=== PATIENT | female | born 1950 | race Caucasian/White ===

== ENCOUNTER 2018-02-09 12:58 | Emergency (ER) | payer MEDICARE ==
[~2018-02-09] VITALS: Ht 165.1 cm; Wt 89.0 kg
[~2018-02-09 12:58] MED LIST: ASPI-611 PO; DILT180C53 PO; LOSA25TA96 PO; OMEP20TA5 PO
[2018-02-09] MEDS ORDERED: ketorolac trometh. 30mg/ml inj. IM ONE (15:20)
[2018-02-09 15:46] VITALS: BP 130/65
== END 2018-02-09 15:44 | disposition home or self-care (01) ==
LOC: ER 12:59
DX: M79.605 Pain in left leg (principal); I48.91 Unspecified atrial fibrillation; I50.9 Heart failure, unspecified; I11.0 Hypertensive heart disease with heart failure; K21.9 Gastro-esophageal reflux disease without esophagitis; E11.9 Type 2 diabetes mellitus without complications; Z98.84 Bariatric surgery status; Z79.82 Long term (current) use of aspirin; Z79.899 Other long term (current) drug therapy
CPT/HCPCS: 93971; 96372; 99284; J1885

== ENCOUNTER 2018-12-30 08:37 | Emergency (ER) | payer MEDICARE ==
[~2018-12-30] VITALS: Ht 167.6 cm; Wt 93.2 kg
--- NOTE | 2018-12-30 09:06 | NUR ---
Patient ambulated to room from lobby with steady gait. Patient denies any CP, SOB, N/V or any other pain at this time. Patient reports only numbness to left arm since this AM. Patient denies any recent neck, back or arm injury. Patient reports surg. to neck 07/25. Patient don gown and given warm blanket. Lab michael blood at bedside.
[2018-12-30 09:52] VITALS: BP 105/58
== END 2018-12-30 09:53 | disposition home or self-care (01) ==
LOC: ER 08:37
DX: R20.0 Anesthesia of skin (principal); I11.0 Hypertensive heart disease with heart failure; I50.9 Heart failure, unspecified; I48.91 Unspecified atrial fibrillation; E11.9 Type 2 diabetes mellitus without complications; Z98.890 Other specified postprocedural states; Z88.8 Allergy status to other drugs, medicaments and biological substances; Z79.82 Long term (current) use of aspirin; Z79.899 Other long term (current) drug therapy
CPT/HCPCS: 71045; 93005; 99283

== ENCOUNTER 2019-01-22 14:58 | Outpatient (CLI) | payer MEDICARE ==
[2019-01-22 16:05] LABS: TOTAL HEMOGLOBIN 13.5 G/dl (12.0-16.0)
== END 2019-01-22 23:59 | disposition home or self-care (01) ==
LOC: RT 14:58
PROVIDERS: ATTEND Internal Medicine Cardiovascular Disease
DX: I11.0 Hypertensive heart disease with heart failure (principal); I50.9 Heart failure, unspecified; E11.9 Type 2 diabetes mellitus without complications; F17.210 Nicotine dependence, cigarettes, uncomplicated; Z79.899 Other long term (current) drug therapy; Z79.82 Long term (current) use of aspirin; R06.09 Other forms of dyspnea
CPT/HCPCS: 85018; 94010; 94727; 94729

== ENCOUNTER 2019-06-14 12:04 | Emergency (ER) | payer MEDICARE ==
[~2019-06-14] VITALS: Ht 167.6 cm; Wt 94.0 kg
[2019-06-14] MEDS ORDERED: ondansetron 4mg rapidly disintigrating tab PO ONE (12:25)
[2019-06-14] MEDS ORDERED: morphine 4 MG/ML inj SYRINge IM ONE (12:25)
[2019-06-14] MEDS ORDERED: morphine 10mg/ml inj. IM ONE (12:30)
[2019-06-14 14:14] VITALS: BP 116/68
== END 2019-06-14 14:19 | disposition home or self-care (01) ==
LOC: ER 12:04
DX: S30.0XXA Contusion of lower back and pelvis, initial encounter (principal); M79.7 Fibromyalgia; I48.91 Unspecified atrial fibrillation; I11.0 Hypertensive heart disease with heart failure; I50.9 Heart failure, unspecified; E11.9 Type 2 diabetes mellitus without complications; Z98.890 Other specified postprocedural states; Z98.84 Bariatric surgery status; Z79.82 Long term (current) use of aspirin; Z79.899 Other long term (current) drug therapy; Z88.8 Allergy status to other drugs, medicaments and biological substances; W01.198A Fall on same level from slipping, tripping and stumbling with subsequent striking against other object, initial encounter; Y93.89 Activity, other specified; Y92.89 Other specified places as the place of occurrence of the external cause; Y99.9 Unspecified external cause status
CPT/HCPCS: 72128; 72131; 96372; 99284; J2270

== ENCOUNTER → 2020-02-20 | Outpatient (CLI) | payer MEDICARE, MEDICAID ==
[2020-02-20 10:31] LABS: TOTAL HEMOGLOBIN 14.9 G/dl (12.0-16.0)
== END | disposition home or self-care (01) ==
LOC: RT 10:09
PROVIDERS: ATTEND Internal Medicine Cardiovascular Disease
DX: R06.02 Shortness of breath (principal); Z79.899 Other long term (current) drug therapy
CPT/HCPCS: 85018; 94010; 94727; 94729

== ENCOUNTER 2020-07-06 14:37 | Emergency (ER) | payer MEDICARE, MEDICAID ==
[~2020-07-06] VITALS: Ht 167.6 cm; Wt 98.6 kg
[2020-07-06] MEDS ORDERED: HYDROcodone/acetaminophen 5mg/325mg tablet PO ONE (15:00)
--- NOTE | 2020-07-06 15:10 | NUR ---
Patient in CT
--- NOTE | 2020-07-06 15:25 | NUR ---
Patient in X-Ray
[2020-07-06 15:49] LABS: BASOPHILS % (AUTO) 0.6 % (0-1); EOSINOPHILS # (AUTO) 0.1 X10'3 (0-0.9); EOSINOPHILS % (AUTO) 1.4 % (0-6); HEMATOCRIT 44.6 % (35.0-45.0); HEMOGLOBIN 14.9 g/dl (12.0-16.0); LYMPHOCYTES # (AUTO) 1.4 X10'3 (1.1-4.8); LYMPHOCYTES % (AUTO) 19.4 % (21-51); MEAN CORPUSCULAR HEMOGLOBIN 30.5 PG (27.0-31.0); MEAN CORPUSCULAR HGB CONC 33.4 g/dL (33.0-36.5); MEAN CORPUSCULAR VOLUME 91.4 FL (78-98); MEAN PLATELET VOLUME 8.1 FL (7.4-10.4); MONOCYTES # (AUTO) 0.5 X10'3 (0-0.9); MONOCYTES % (AUTO) 6.3 % (2-12); NEUTROPHILS # (AUTO) 5.2 X10'3 (1.8-7.7); NEUTROPHILS % (AUTO) 72.3 % (42-75); PLATELET COUNT 206 X10'3 (140-440); RED BLOOD COUNT 4.88 X10'6 (4.20-5.60); RED CELL DISTRIBUTION WIDTH 14.5 % (11.5-14.5); WHITE BLOOD COUNT 7.2 X10'3 (4.5-11.0)
[2020-07-06 16:03] LABS: PARTIAL THROMBOPLASTIN TIME 25 SECONDS (22-32)
[2020-07-06 16:04] LABS: ALANINE AMINOTRANSFERASE 26 U/L (12-78); ALBUMIN 3.8 G/DL (3.4-5.0); ALBUMIN/GLOBULIN RATIO 1.1 (1.1-1.5); ALKALINE PHOSPHATASE 81 IU/L (46-116); ANION GAP 7 (8-16); ASPARTATE AMINO TRANSFERASE 14 U/L (10-37); BILIRUBIN,TOTAL 0.8 MG/DL (0.1-1.0); BLOOD UREA NITROGEN 13 MG/DL (7-18); BUN/CREATININE RATIO 12.9 (6.6-38.0); CALCIUM 9.3 MG/DL (8.5-10.1); CHLORIDE 102 MMOL/L (99-107); CREATININE 1.01 MG/DL (0.40-0.90); GLUCOSE 143 MG/DL (70-104); POTASSIUM 4.5 MMOL/L (3.5-5.1); SODIUM 141 MMOL/L (135-145); TOTAL CARBON DIOXIDE 31.7 MMOL/L (24-32); TOTAL PROTEIN 7.2 G/DL (6.4-8.2); eGFR 55 ML/MIN
[2020-07-06] MEDS ORDERED: ketorolac tromethamine 15mg/ml inj. IM ONE (16:10)
[2020-07-06] MEDS ORDERED: HYDR-3965 PO (18:17)
[2020-07-06 18:35] VITALS: BP 128/70
== END 2020-07-06 18:40 | disposition home or self-care (01) ==
LOC: ER 14:37
DX: S82.491A Other fracture of shaft of right fibula, initial encounter for closed fracture (principal); S82.891A Other fracture of right lower leg, initial encounter for closed fracture; R51 Headache; M25.561 Pain in right knee; M25.571 Pain in right ankle and joints of right foot; I48.91 Unspecified atrial fibrillation; I11.0 Hypertensive heart disease with heart failure; I50.9 Heart failure, unspecified; E11.9 Type 2 diabetes mellitus without complications; Z87.01 Personal history of pneumonia (recurrent); Z98.890 Other specified postprocedural states; Z88.8 Allergy status to other drugs, medicaments and biological substances; Z79.82 Long term (current) use of aspirin; Z79.899 Other long term (current) drug therapy; W01.198A Fall on same level from slipping, tripping and stumbling with subsequent striking against other object, initial encounter; Y93.89 Activity, other specified; Y92.89 Other specified places as the place of occurrence of the external cause; Y99.8 Other external cause status
CPT/HCPCS: 36415; 70450; 72125; 73502; 73564; 73610; 73700; 80053; 85025; 85610; 85730; 96372; 99285; J1885

== ENCOUNTER 2021-09-09 05:26 | Day surgery (SDC) | payer MEDICARE, MEDICAID ==
[2021-08-31 14:31] LABS: BASOPHILS % (AUTO) 0.4 % (0-1); EOSINOPHILS # (AUTO) 0.1 X10'3 (0-0.9); LYMPHOCYTES % (AUTO) 31.6 % (21-51); MEAN CORPUSCULAR HEMOGLOBIN 29.6 PG (27.0-31.0); MEAN CORPUSCULAR HGB CONC 33.5 g/dL (33.0-36.5); MEAN CORPUSCULAR VOLUME 88.2 FL (78-98); MEAN PLATELET VOLUME 8.8 FL (7.4-10.4); MONOCYTES # (AUTO) 0.5 X10'3 (0-0.9); MONOCYTES % (AUTO) 7.1 % (2-12); NEUTROPHILS # (AUTO) 3.8 X10'3 (1.8-7.7); NEUTROPHILS % (AUTO) 58.9 % (42-75); PRE OP HEMATOCRIT 43.2 % (35.0-45.0); PRE OP HEMOGLOBIN 14.5 g/dL (12.0-16.0); PRE OP PLATELET COUNT 225 X10'3 (140-440); RED CELL DISTRIBUTION WIDTH 14.3 % (11.5-14.5)
[2021-08-31 14:43] LABS: ALBUMIN 3.9 G/DL (3.4-5.0); ALBUMIN/GLOBULIN RATIO 1.1 (1.1-1.5); ALKALINE PHOSPHATASE 85 IU/L (46-116); BLOOD UREA NITROGEN 10 MG/DL (7-18); CALCIUM 8.8 MG/DL (8.5-10.1); CHLORIDE 105 MMOL/L (99-107); CREATININE 0.91 MG/DL (0.40-0.90); PRE OP ALT 21 U/L (30-65); PRE OP ANION GAP 10 (8-16); PRE OP AST 16 U/L (10-37); PRE OP GLUCOSE 133 MG/DL (70-104); PRE OP POTASSIUM 3.6 MMOL/L (3.4-5.1); PRE OP SODIUM 143 MMOL/L (135-145); TOTAL CARBON DIOXIDE 27.7 MMOL/L (24-32); TOTAL PROTEIN 7.4 G/DL (6.4-8.2); eGFR 61 ML/MIN
[~2021-09-09] VITALS: Ht 167.6 cm; Wt 94.3 kg
[~2021-09-09 05:26] MED LIST changes: +AMIO200T61 PO; +APIX5TAB3 PO; -ASPI-611 PO; +ATOR10TA87 PO; +EMPA10TA PO; +ESZO3TAB44 PO; +LEVO75TA PO; +MECO10005 PO; -OMEP20TA5 PO; +SPIR25TA5 PO; +TRAM50TA2 PO; +ringers solution, lacted 1,000 ML IV SCH
[2021-09-09] MEDS ORDERED: famotidine 20mg tablet PO ONE (05:30)
[2021-09-09] MEDS ORDERED: cefazolin/dext.iso 2gm/50ml IV ONE (05:30)
[2021-09-09 05:35] VITALS: BP 115/59
[2021-09-09] MEDS ORDERED: GABA600T13 PO (06:11)
[2021-09-09] MEDS ORDERED: BUPIVAcaine/PF 2.5mg/ml (0.25%) 10ml vial ONE (06:48)
[2021-09-09 06:51] LABS: PRE OP INR 1.1 INR; PRE OP PROTIME 11.4 SECONDS (9.0-12.0)
[2021-09-09] MEDS ORDERED: ondansetron/PF 4mg/2ml inj IV PRN (07:10)
[2021-09-09] MEDS ORDERED: hydrALAZINE 20mg/ml inj. IV PRN (07:10)
[2021-09-09] MEDS ORDERED: fentaNYL/PF 50MCG/1 ML 2ML syringe IV PRN ×2 (07:10)
[2021-09-09] MEDS ORDERED: labetalol 20mg/4ml (5mg/ml) syringe IV PRN (07:10)
[2021-09-09] MEDS ORDERED: ringers solution, lacted 1,000 ML IV SCH (07:10)
[2021-09-09] MEDS ORDERED: morphine 4 MG/ML inj SYRINge IV PRN (07:10)
[2021-09-09] MEDS ORDERED: morphine 2 MG/ML inj. syringe IV PRN (07:10)
[2021-09-09] MEDS ORDERED: LIDOcaine 0.5% (5mg/ml) 50ml vial ONE (07:44)
[2021-09-09] MEDS ORDERED: MIDAZolam 1 MG/ML 5ML VIAL ONE (07:46)
[2021-09-09] MEDS ORDERED: fentaNYL/PF 50MCG/1 ML 2ML syringe ONE (07:46)
[2021-09-09 08:49] VITALS: BP 104/40
--- NOTE | 2021-09-09 08:49 | NUR ---
Received from OR via , accompanied by Anesthesiologist DR DINERO and report given by Anesthesiolgist. AWAKENS TO VOICE. VITALS STABLE. DRESSING DI. GUZMAN PAIN. FINGERS WARM AND PINK.
[2021-09-09 08:59] VITALS: BP 92/77
[2021-09-09 09:09] VITALS: BP 106/87
[2021-09-09 09:19] VITALS: BP 107/47
--- NOTE | 2021-09-09 09:29 | NUR ---
AWAKE AND ORIENTED. VITALS STABLE. DRESSING DI. GUZMAN PAIN. HOME WITH A FRIEND AT THIS TIME.
== END 2021-09-09 09:29 | disposition home or self-care (01) ==
LOC: PAS 05:26
PROVIDERS: ATTEND Orthopaedic Surgery Hand Surgery
DX: G56.01 Carpal tunnel syndrome, right upper limb (principal); I11.0 Hypertensive heart disease with heart failure; I50.9 Heart failure, unspecified; E11.9 Type 2 diabetes mellitus without complications; G47.33 Obstructive sleep apnea (adult) (pediatric); Z20.822 Contact with and (suspected) exposure to COVID-19; Z79.01 Long term (current) use of anticoagulants; Z79.899 Other long term (current) drug therapy; Z88.8 Allergy status to other drugs, medicaments and biological substances; Z98.84 Bariatric surgery status; Z98.49 Cataract extraction status, unspecified eye; Z98.890 Other specified postprocedural states
CPT/HCPCS: 29848; 36415; 80053; 82948; 85025; 85610; 85730; J0690; J2250; J3010; J3490; J7030; J7120; U0003; U0005; Z7506; Z7512; A4215; A6449; A7000

== ENCOUNTER 2021-10-24 05:32 | Day surgery (SDC) | payer MEDICARE, MEDICAID ==
[2021-10-18 16:22] LABS: BASOPHILS % (AUTO) 0.5 % (0-1); EOSINOPHILS # (AUTO) 0.2 X10'3 (0-0.9); EOSINOPHILS % (AUTO) 2.5 % (0-6); LYMPHOCYTES # (AUTO) 1.8 X10'3 (1.1-4.8); LYMPHOCYTES % (AUTO) 25.7 % (21-51); MEAN CORPUSCULAR HEMOGLOBIN 29.7 PG (27.0-31.0); MEAN CORPUSCULAR HGB CONC 33.6 g/dL (33.0-36.5); MEAN CORPUSCULAR VOLUME 88.5 FL (78-98); MEAN PLATELET VOLUME 8.7 FL (7.4-10.4); MONOCYTES # (AUTO) 0.5 X10'3 (0-0.9); MONOCYTES % (AUTO) 6.6 % (2-12); NEUTROPHILS # (AUTO) 4.6 X10'3 (1.8-7.7); NEUTROPHILS % (AUTO) 64.7 % (42-75); PRE OP HEMATOCRIT 40.1 % (35.0-45.0); PRE OP HEMOGLOBIN 13.5 g/dL (12.0-16.0); PRE OP PLATELET COUNT 229 X10'3 (140-440); RED BLOOD COUNT 4.53 X10'6 (4.20-5.60); RED CELL DISTRIBUTION WIDTH 14.4 % (11.5-14.5)
[2021-10-18 16:30] LABS: ALBUMIN 3.5 G/DL (3.4-5.0); ALKALINE PHOSPHATASE 83 IU/L (46-116); BLOOD UREA NITROGEN 15 MG/DL (7-18); BUN/CREATININE RATIO 15.5 (6.6-38.0); CALCIUM 9.2 MG/DL (8.5-10.1); CHLORIDE 104 MMOL/L (99-107); CREATININE 0.97 MG/DL (0.40-0.90); PRE OP ALT 15 U/L (30-65); PRE OP ANION GAP 8 (8-16); PRE OP AST 13 U/L (10-37); PRE OP BILIRUB, TOTAL 1.1 MG/DL (0.0-1.0); PRE OP GLUCOSE 156 MG/DL (70-104); PRE OP POTASSIUM 4.2 MMOL/L (3.4-5.1); PRE OP SODIUM 142 MMOL/L (135-145); TOTAL CARBON DIOXIDE 29.8 MMOL/L (24-32); eGFR 57 ML/MIN
[~2021-10-24] VITALS: Ht 165.1 cm; Wt 99.0 kg
[~2021-10-24 05:32] MED LIST changes: +DILT180T11 PO; +GABA600T13 PO; -LOSA25TA96 PO; +SEMA1PEN3 SQ; -TRAM50TA2 PO; +cefazolin/dext.iso 2gm/50ml IV ONE; +famotidine 20mg tablet PO ONE
[2021-10-24 05:40] VITALS: BP 103/54
[2021-10-24] MEDS ORDERED: BUPIVAcaine/PF 2.5 mg/ml (0.25%) 30ml vial ONE (06:44)
[2021-10-24] MEDS ORDERED: LIDOcaine 0.5% (5mg/ml) 50ml vial ONE (07:18)
[2021-10-24] MEDS ORDERED: midazolam 1 mg/ML 2ml injection ONE (07:18)
[2021-10-24] MEDS ORDERED: fentaNYL/PF 50MCG/1 ML 2ML syringe ONE (07:18)
[2021-10-24 07:50] VITALS: BP 97/47
--- NOTE | 2021-10-24 07:50 | NUR ---
Received from OR via ALEXANDRA, accompanied by Anesthesiologist DR MATT and report given by Anesthesiolgist. PT AWAKE, ORIENTED. VVS. DENIES PAIN. IV PATENT RIGHT HAND #20 WITH LR AT 100MLS/HR. LEFT FINGERS WARM WITH [employer]AV[employer]. ABLE TO WIGGLE LEFT FINGERS WELL. LEFT HAND ELEVATED WITH ICE TO AREA. Addendum: 10/24/21 at 0810 by Lissette Thompson RN Amended: Links added.
[2021-10-24] MEDS ORDERED: meperidine/PF 25mg/ml syringe IV PRN ×3 (07:55)
[2021-10-24] MEDS ORDERED: ondansetron/PF 4mg/2ml inj IV PRN (07:55)
[2021-10-24] MEDS ORDERED: morphine 4 MG/ML inj SYRINge IV PRN (07:55)
[2021-10-24] MEDS ORDERED: proCHLORperazine 10 MG/2 ml inj IV PRN (07:55)
[2021-10-24] MEDS ORDERED: morphine 2 MG/ML inj. syringe IV PRN (07:55)
[2021-10-24] MEDS ORDERED: ringers solution, lacted 1,000 ML IV SCH (07:55)
[2021-10-24 08:00] VITALS: BP 99/52
[2021-10-24 08:10] VITALS: BP 98/55
--- NOTE | 2021-10-24 08:15 | NUR ---
PT STABLE, NO CHANGE IN CONDITION. REPORT OFF THE ISABELA RN WHO ASSUMES CARE OF THE PT.
[2021-10-24 08:20] VITALS: BP 96/53
[2021-10-24 08:30] VITALS: BP 94/50
--- NOTE | 2021-10-24 09:20 | NUR ---
AWAKE AND ORIENTED. VITALS STABLE. DRESSING DI. GUZMAN PAIN. HOME WITH AN UBER ATTENDANT [facility] AT THIS TIME.
== END 2021-10-24 09:20 | disposition home or self-care (01) ==
LOC: PAS 05:32
PROVIDERS: ATTEND Orthopaedic Surgery Hand Surgery
DX: G56.02 Carpal tunnel syndrome, left upper limb (principal); I10 Essential (primary) hypertension; G47.30 Sleep apnea, unspecified; E66.9 Obesity, unspecified; Z68.35 Body mass index [BMI] 35.0-35.9, adult; F41.9 Anxiety disorder, unspecified; E11.40 Type 2 diabetes mellitus with diabetic neuropathy, unspecified; E03.9 Hypothyroidism, unspecified; M19.90 Unspecified osteoarthritis, unspecified site; G89.4 Chronic pain syndrome; Z88.8 Allergy status to other drugs, medicaments and biological substances; Z79.899 Other long term (current) drug therapy; Z79.01 Long term (current) use of anticoagulants; Z98.890 Other specified postprocedural states; Z90.710 Acquired absence of both cervix and uterus; Z98.49 Cataract extraction status, unspecified eye; Z98.84 Bariatric surgery status; Z87.891 Personal history of nicotine dependence; Z20.822 Contact with and (suspected) exposure to COVID-19
CPT/HCPCS: 29848; 36415; 80053; 82948; 85025; 93005; J0690; J2250; J3010; J3490; J7030; J7120; U0003; U0005; Z7506; Z7512; A4215; A7000

== ENCOUNTER 2022-01-31 13:09 | Emergency (ER) | payer MEDICARE, MEDICAID ==
[~2022-01-31] VITALS: Ht 165.1 cm; Wt 95.0 kg
[~2022-01-31 13:09] MED LIST changes: -DILT180T11 PO; -cefazolin/dext.iso 2gm/50ml IV ONE; -famotidine 20mg tablet PO ONE; -ringers solution, lacted 1,000 ML IV SCH
[2022-01-31 13:46] LABS: BASOPHILS % (AUTO) 0.5 % (0-1); EOSINOPHILS # (AUTO) 0.1 X10'3 (0-0.9); EOSINOPHILS % (AUTO) 2.9 % (0-6); HEMATOCRIT 41.7 % (35.0-45.0); HEMOGLOBIN 13.8 g/dl (12.0-16.0); LYMPHOCYTES # (AUTO) 1.4 X10'3 (1.1-4.8); LYMPHOCYTES % (AUTO) 31.1 % (21-51); MEAN CORPUSCULAR HEMOGLOBIN 28.9 PG (27.0-31.0); MEAN CORPUSCULAR HGB CONC 33.1 g/dL (33.0-36.5); MEAN CORPUSCULAR VOLUME 87.3 FL (78-98); MEAN PLATELET VOLUME 8.4 FL (7.4-10.4); MONOCYTES # (AUTO) 0.3 X10'3 (0-0.9); MONOCYTES % (AUTO) 7.4 % (2-12); NEUTROPHILS # (AUTO) 2.7 X10'3 (1.8-7.7); NEUTROPHILS % (AUTO) 58.1 % (42-75); PLATELET COUNT 181 X10'3 (140-440); RED BLOOD COUNT 4.77 X10'6 (4.20-5.60); RED CELL DISTRIBUTION WIDTH 15.4 % (11.5-14.5); WHITE BLOOD COUNT 4.6 X10'3 (4.5-11.0)
[2022-01-31 13:59] LABS: ALANINE AMINOTRANSFERASE 21 U/L (12-78); ALBUMIN 3.5 G/DL (3.4-5.0); ALKALINE PHOSPHATASE 80 IU/L (46-116); ANION GAP 6 (8-16); ASPARTATE AMINO TRANSFERASE 19 U/L (10-37); BILIRUBIN,TOTAL 0.7 MG/DL (0.1-1.0); BLOOD UREA NITROGEN 9 MG/DL (7-18); CALCIUM 8.5 MG/DL (8.5-10.1); CHLORIDE 108 MMOL/L (99-107); GLUCOSE 165 MG/DL (70-104); POTASSIUM 4.6 MMOL/L (3.5-5.1); SODIUM 144 MMOL/L (135-145); TOTAL CARBON DIOXIDE 30.3 MMOL/L (24-32); eGFR 55 ML/MIN
[2022-01-31 15:53] VITALS: BP 120/64
== END 2022-01-31 18:30 | disposition home or self-care (01) ==
LOC: ER 13:10
DX: R05.9 Cough, unspecified (principal); R07.89 Other chest pain; I48.91 Unspecified atrial fibrillation; I25.10 Atherosclerotic heart disease of native coronary artery without angina pectoris; I50.9 Heart failure, unspecified; I11.0 Hypertensive heart disease with heart failure; E11.9 Type 2 diabetes mellitus without complications; E03.9 Hypothyroidism, unspecified; Z87.01 Personal history of pneumonia (recurrent); Z98.890 Other specified postprocedural states; Z88.8 Allergy status to other drugs, medicaments and biological substances; Z79.899 Other long term (current) drug therapy
CPT/HCPCS: 36415; 71045; 80053; 83880; 84484; 85025; 93005; 99285

== ENCOUNTER 2023-10-04 11:49 | Emergency (ER) | payer MEDICARE, MEDICAID ==
[~2023-10-04] VITALS: Ht 167.6 cm; Wt 90.7 kg
[~2023-10-04 11:49] MED LIST changes: +AMI200T PO; -AMIO200T61 PO
[2023-10-04] MEDS ORDERED: NEOM10DR45 RIGHT EAR (12:43)
[2023-10-04] MEDS ORDERED: CEFD300C3 PO (12:43)
[2023-10-04 13:03] VITALS: BP 125/45; PULSE 60; RESP 16; TEMP 98; O2SAT 93
== END 2023-10-04 13:07 | disposition home or self-care (01) ==
LOC: ER 11:50
DX: H66.001 Acute suppurative otitis media without spontaneous rupture of ear drum, right ear (principal); Z88.8 Allergy status to other drugs, medicaments and biological substances; I11.0 Hypertensive heart disease with heart failure; E11.9 Type 2 diabetes mellitus without complications; E03.9 Hypothyroidism, unspecified; Z88.6 Allergy status to analgesic agent; Z79.899 Other long term (current) drug therapy
CPT/HCPCS: 99283

== ENCOUNTER 2023-12-27 10:28 | Inpatient (IN) | payer MEDICARE, MEDICAID ==
[~2023-12-27] VITALS: Ht 165.1 cm; Wt 88.7 kg
[2023-12-27 11:02] LABS: BASOPHILS % (AUTO) 0.6 % (0-1); EOSINOPHILS # (AUTO) 0.2 X10'3 (0-0.9); EOSINOPHILS % (AUTO) 2.1 % (0-6); HEMOGLOBIN 14.9 g/dl (12.0-16.0); LYMPHOCYTES # (AUTO) 2.1 X10'3 (1.1-4.8); LYMPHOCYTES % (AUTO) 28.8 % (21-51); MEAN CORPUSCULAR HEMOGLOBIN 30.4 PG (27.0-31.0); MEAN CORPUSCULAR VOLUME 92.1 FL (78-98); MEAN PLATELET VOLUME 8.6 FL (7.4-10.4); MONOCYTES # (AUTO) 0.4 X10'3 (0-0.9); NEUTROPHILS # (AUTO) 4.5 X10'3 (1.8-7.7); NEUTROPHILS % (AUTO) 62.5 % (42-75); PLATELET COUNT 234 X10'3 (140-440); RED BLOOD COUNT 4.89 X10'6 (4.20-5.60); RED CELL DISTRIBUTION WIDTH 15.1 % (11.5-14.5); WHITE BLOOD COUNT 7.3 X10'3 (4.5-11.0)
[2023-12-27 11:16] LABS: ALANINE AMINOTRANSFERASE 17 U/L (12-78); ALBUMIN 3.3 G/DL (3.4-5.0); ALKALINE PHOSPHATASE 67 IU/L (46-116); ANION GAP 9 (8-16); ASPARTATE AMINO TRANSFERASE 18 U/L (10-37); BILIRUBIN,TOTAL 0.8 MG/DL (0.1-1.0); BLOOD UREA NITROGEN 8 MG/DL (7-18); BUN/CREATININE RATIO 7.8 (10.0-20.0); CHLORIDE 108 MMOL/L (99-107); CREATININE 1.03 MG/DL (0.40-0.90); GLUCOSE 174 MG/DL (70-104); POTASSIUM 3.6 MMOL/L (3.5-5.1); SODIUM 145 MMOL/L (135-145); TOTAL CARBON DIOXIDE 27.8 MMOL/L (24-32); TOTAL PROTEIN 6.7 G/DL (6.4-8.2); eCRCL 45 ML/MIN; eGFR 53 ML/MIN
[2023-12-27 11:25] LABS: PRO BRAIN NATRIURETIC PEPTIDE 256 PG/ML (0-125)
[2023-12-27] MEDS: nitroGLYCERIN 0.2mg/hour patch TD ONE (17:15)
[2023-12-27] MEDS: fentaNYL/PF 50MCG/1 ML 2ML syringe IV ONE (17:15)
[2023-12-27] MEDS: ondansetron/PF 4mg/2ml inj IV ONE (17:16)
[2023-12-27] MEDS: acetaminophen 325mg tablet PO ONE (17:17)
[2023-12-27] MEDS: aspirin 81mg tab.chew PO ONE (17:58)
[2023-12-27] MEDS ORDERED: magnesium hydroxide 30ml (MOM) UD suspension PO PRN (18:05)
[2023-12-27] MEDS ORDERED: magnesium 4gm in 100ml NS 100 ML IV PRN (18:05)
[2023-12-27] MEDS ORDERED: magnesium Cl slow-release 64mg tablet PO PRN (18:05)
[2023-12-27] MEDS ORDERED: mag hydrox/Alum hydrox/simeth 30ml oral suspension PO PRN (18:05)
[2023-12-27] MEDS ORDERED: ondansetron/PF 4mg/2ml inj IV PRN (18:05)
[2023-12-27] MEDS ORDERED: potassium Cl 20 mEq SR tablet PO PRN ×2 (18:05)
[2023-12-27] MEDS ORDERED: potassium Cl 40MEQ/1/2NS 520ml 520 ML IV PRN (18:05)
[2023-12-27] MEDS ORDERED: magnesium 2GM in 50ml NS 50 ML IV PRN (18:05)
[2023-12-27 18:26] LABS: MAGNESIUM 1.9 MG/DL (1.5-2.4); PHOSPHORUS 3.8 MG/DL (2.3-4.5)
[2023-12-27] MEDS: K and/or MAG REPLACEMENT MC SCH (20:00)
[2023-12-27] MEDS: acetaminophen 325mg tablet PO PRN (22:07)
[2023-12-27] MEDS: apixaban 5mg tablet PO SCH (22:07)
[2023-12-27] MEDS: diphenhydrAMINE 25mg capsule PO ONE (22:09)
[2023-12-28] MEDS: amiodarone 200mg tablet PO SCH (08:00)
[2023-12-28] MEDS: diltiazem CD 180mg cap (once-daily) PO SCH (08:00)
[2023-12-28] MEDS: spironolactone 25 MG tablet PO SCH (08:00)
[2023-12-28 08:32] LABS: BASOPHILS % (AUTO) 0.4 % (0-1); EOSINOPHILS # (AUTO) 0.2 X10'3 (0-0.9); HEMATOCRIT 43.3 % (35.0-45.0); HEMOGLOBIN 14.5 g/dl (12.0-16.0); LYMPHOCYTES # (AUTO) 2.2 X10'3 (1.1-4.8); MEAN CORPUSCULAR HEMOGLOBIN 30.7 PG (27.0-31.0); MEAN CORPUSCULAR HGB CONC 33.6 g/dL (33.0-36.5); MEAN CORPUSCULAR VOLUME 91.3 FL (78-98); MEAN PLATELET VOLUME 8.8 FL (7.4-10.4); MONOCYTES # (AUTO) 0.5 X10'3 (0-0.9); MONOCYTES % (AUTO) 6.6 % (2-12); NEUTROPHILS # (AUTO) 4.7 X10'3 (1.8-7.7); PLATELET COUNT 203 X10'3 (140-440); RED BLOOD COUNT 4.74 X10'6 (4.20-5.60); RED CELL DISTRIBUTION WIDTH 15.3 % (11.5-14.5); WHITE BLOOD COUNT 7.6 X10'3 (4.5-11.0)
[2023-12-28 09:13] LABS: ALANINE AMINOTRANSFERASE 12 U/L (12-78); ALBUMIN/GLOBULIN RATIO 0.9 (1.1-1.5); ALKALINE PHOSPHATASE 61 IU/L (46-116); ANION GAP 10 (8-16); ASPARTATE AMINO TRANSFERASE 14 U/L (10-37); BILIRUBIN,TOTAL 0.9 MG/DL (0.1-1.0); BLOOD UREA NITROGEN 13 MG/DL (7-18); BUN/CREATININE RATIO 15.7 (10.0-20.0); CALCIUM 8.6 MG/DL (8.5-10.1); CHLORIDE 109 MMOL/L (99-107); CREATININE 0.83 MG/DL (0.40-0.90); GLUCOSE 104 MG/DL (70-104); SODIUM 144 MMOL/L (135-145); TOTAL CARBON DIOXIDE 25.1 MMOL/L (24-32); TOTAL PROTEIN 6.3 G/DL (6.4-8.2); eCRCL 56 ML/MIN; eGFR 68 ML/MIN
[2023-12-28] MEDS: levoTHYROXINE 75mcg tablet PO SCH (09:38)
[2023-12-28] MEDS: atorvastatin 10mg tablet PO SCH (09:38)
[2023-12-28 13:36] LABS: THYROID STIMULATING HORMONE 1.43 ulU/ml (0.34-4.50)
[2023-12-28] MEDS ORDERED: DILT240C90 PO (13:41)
[2023-12-28 15:59] VITALS: BP 118/57; PULSE 67; RESP 18; TEMP 97.5; O2SAT 96
[2023-12-28] MEDS ORDERED: metoprolol tartrate 50mg tablet PO SCH (20:00)
== END 2023-12-28 16:28 | disposition home or self-care (01) | DRG 309 ==
LOC: ER 10:29 → ED HOLD 18:05
PROVIDERS: ADMIT Internal Medicine; ATTEND Internal Medicine
DX: I48.0 Paroxysmal atrial fibrillation (principal); I50.22 Chronic systolic (congestive) heart failure; I47.19 Other supraventricular tachycardia; I42.9 Cardiomyopathy, unspecified; I25.10 Atherosclerotic heart disease of native coronary artery without angina pectoris; I11.0 Hypertensive heart disease with heart failure; E11.9 Type 2 diabetes mellitus without complications; M79.7 Fibromyalgia; E03.9 Hypothyroidism, unspecified; Z98.84 Bariatric surgery status; Z88.8 Allergy status to other drugs, medicaments and biological substances; Z79.84 Long term (current) use of oral hypoglycemic drugs; Z79.01 Long term (current) use of anticoagulants; Z87.891 Personal history of nicotine dependence; Z79.899 Other long term (current) drug therapy; Z83.3 Family history of diabetes mellitus
CPT/HCPCS: 36415; 70450; 71045; 80053; 82948; 83735; 83880; 84100; 84443; 84484; 85025; 93005; 93306; 99285; A4615; G0378; Q0163

== ENCOUNTER 2024-02-06 07:20 | Day surgery (SDC) | payer MEDICARE, MEDICAID ==
[2024-02-05 10:22] LABS: BASOPHILS % (AUTO) 0.5 % (0-1); EOSINOPHILS # (AUTO) 0.2 X10'3 (0-0.9); EOSINOPHILS % (AUTO) 3.6 % (0-6); HEMATOCRIT 40.4 % (35.0-45.0); HEMOGLOBIN 13.4 g/dl (12.0-16.0); LYMPHOCYTES # (AUTO) 1.8 X10'3 (1.1-4.8); LYMPHOCYTES % (AUTO) 32.3 % (21-51); MEAN CORPUSCULAR HEMOGLOBIN 30.8 PG (27.0-31.0); MEAN CORPUSCULAR VOLUME 93.3 FL (78-98); MEAN PLATELET VOLUME 8.9 FL (7.4-10.4); MONOCYTES # (AUTO) 0.4 X10'3 (0-0.9); MONOCYTES % (AUTO) 7.1 % (2-12); NEUTROPHILS # (AUTO) 3.1 X10'3 (1.8-7.7); NEUTROPHILS % (AUTO) 56.5 % (42-75); PLATELET COUNT 180 X10'3 (140-440); RED BLOOD COUNT 4.33 X10'6 (4.20-5.60); RED CELL DISTRIBUTION WIDTH 15.1 % (11.5-14.5); WHITE BLOOD COUNT 5.4 X10'3 (4.5-11.0)
[2024-02-05 10:25] LABS: ALBUMIN 3.3 G/DL (3.4-5.0); ANION GAP 7 (8-16); BLOOD UREA NITROGEN 12 MG/DL (7-18); BUN/CREATININE RATIO 12.2 (10.0-20.0); CALCIUM 9.3 MG/DL (8.5-10.1); CHLORIDE 108 MMOL/L (99-107); CREATININE 0.98 MG/DL (0.40-0.90); GLUCOSE 126 MG/DL (70-104); POTASSIUM 4.1 MMOL/L (3.5-5.1); SODIUM 145 MMOL/L (135-145); TOTAL CARBON DIOXIDE 29.7 MMOL/L (24-32); eGFR 56 ML/MIN
[~2024-02-06] VITALS: Ht 165.1 cm; Wt 89.1 kg
[~2024-02-06 07:20] MED LIST changes: -DILT180C53 PO; +DILT240C90 PO
[2024-02-06] MEDS ORDERED: CYAN10007 IM (08:12)
[2024-02-06] MEDS ORDERED: LOSA25TA41 PO (08:12)
[2024-02-06] MEDS ORDERED: CARV12.549 PO (08:12)
[2024-02-06] MEDS ORDERED: morphine 10mg/ml inj. IV PRN (08:20)
[2024-02-06] MEDS ORDERED: atropine 1 MG/1 ML vial IV PRN (08:20)
[2024-02-06] MEDS ORDERED: MIDAZolam 1mg/ml 10ml vial IV PRN (08:20)
[2024-02-06] MEDS ORDERED: normal saline 1,000 ML IV SCH (08:25)
[2024-02-06] MEDS ORDERED: amiodarone 150mg/dext, iso-os 100 ML IV PRN (08:25)
[2024-02-06] MEDS ORDERED: LORazepam 0.5 MG tablet PO PRN (08:25)
[2024-02-06 08:30] VITALS: BP 106/40; PULSE 53; RESP 13; TEMP 98
[2024-02-06] MEDS ORDERED: atropine 0.1mg/ml 10ml syringe IV PRN (08:55)
[2024-02-06] MEDS ORDERED: diphenhydrAMINE 25mg capsule PO ONE (10:00)
== END 2024-02-06 09:50 | disposition home or self-care (01) ==
LOC: SSTAY O 07:20
PROVIDERS: ATTEND Internal Medicine Cardiovascular Disease
DX: I48.91 Unspecified atrial fibrillation (principal); Z53.8 Procedure and treatment not carried out for other reasons; I44.7 Left bundle-branch block, unspecified; I11.0 Hypertensive heart disease with heart failure; I50.22 Chronic systolic (congestive) heart failure; I25.10 Atherosclerotic heart disease of native coronary artery without angina pectoris; E11.9 Type 2 diabetes mellitus without complications; E78.5 Hyperlipidemia, unspecified; I34.0 Nonrheumatic mitral (valve) insufficiency; I42.0 Dilated cardiomyopathy; M85.80 Other specified disorders of bone density and structure, unspecified site; Z79.01 Long term (current) use of anticoagulants; Z79.890 Hormone replacement therapy; Z79.899 Other long term (current) drug therapy; Z90.710 Acquired absence of both cervix and uterus; Z90.89 Acquired absence of other organs; Z98.84 Bariatric surgery status; Z98.891 History of uterine scar from previous surgery; Z98.890 Other specified postprocedural states; Z88.8 Allergy status to other drugs, medicaments and biological substances; Z82.49 Family history of ischemic heart disease and other diseases of the circulatory system
CPT/HCPCS: 36415; 80048; 85025; 93005; A4620; J7030

== ENCOUNTER 2024-06-06 16:26 | Emergency (ER) | payer MEDICARE, MEDICAID ==
[~2024-06-06] VITALS: Ht 165.1 cm; Wt 84.6 kg
[~2024-06-06 16:26] MED LIST changes: +CARV12.549 PO; +CYAN10007 IM; -DILT240C90 PO; -ESZO3TAB44 PO; +LOSA25TA41 PO; -MECO10005 PO
[2024-06-06 16:29] VITALS: TEMP 98.5
[2024-06-06 16:51] LABS: BILIRUBIN,URINE NEGATIVE (Neg); CLARITY,URINE CLEAR (Clear); COLOR,URINE YELLOW (Yellow); GLUCOSE, URINE >=1000 mg/dl (Neg); KETONES,URINE NEGATIVE (Neg); LEUKOCYTE ESTERASE ,URINE SMALL (Neg); NITRITES, URINE NEGATIVE (Neg); OCCULT BLOOD,URINE SMALL (Neg); PROTEIN,URINE NEGATIVE (Neg); UA COLLECTION TYPE CLN CATCH MIDSTREAM; UROBILINOGEN,URINE 0.2 E.U/dL (0.2-1.0)
[2024-06-06 16:58] LABS: BACTERIA,URINE 1+ /HPF (Neg); RBC,URINE 20-50 /HPF (0-2); WBC,URINE TNTC /HPF (0-4)
[2024-06-06 16:59] LABS: MUCUS STRANDS FEW /LPF (Neg); SQUAMOUS EPITHELIAL CELL,UR MODERATE /LPF (FEW); WBC CLUMPS,URINE MODERATE /HPF (NEGATIVE)
[2024-06-06] MEDS ORDERED: CEPH-585 PO (17:15)
[2024-06-06] MEDS ORDERED: PHEN-716 PO (17:15)
[2024-06-06] MEDS: CefTRIAXone 1000mg IM Kit (w/lidocaine diluent) IM ONE (17:19)
[2024-06-06] MEDS: phenazopyridine 100mg tablet PO ONE (17:19)
[2024-06-06 17:32] VITALS: BP 104/44; PULSE 65; RESP 16; O2SAT 94
== END 2024-06-06 17:33 | disposition home or self-care (01) ==
LOC: ER 16:26
DX: N39.0 Urinary tract infection, site not specified (principal); I25.10 Atherosclerotic heart disease of native coronary artery without angina pectoris; I48.91 Unspecified atrial fibrillation; I11.0 Hypertensive heart disease with heart failure; I50.9 Heart failure, unspecified; E11.9 Type 2 diabetes mellitus without complications; E03.9 Hypothyroidism, unspecified; Z88.8 Allergy status to other drugs, medicaments and biological substances; Z79.899 Other long term (current) drug therapy; Z98.890 Other specified postprocedural states
CPT/HCPCS: 81001; 87077; 87088; 87186; 96372; 99284; J0696

== ENCOUNTER 2025-06-06 19:17 | Emergency (ER) | payer MEDICARE, MEDICAID ==
[~2025-06-06 19:17] MED LIST changes: -AMI200T PO; +AMIO200T76 PO; -CARV12.549 PO; +GABA-1405 PO; -GABA600T13 PO; +LEVO750T68 PO
[2025-06-06] MEDS: LidoCAINE 2% Topical Jelly 11mL syringe (UROJET) TOP ONE (20:20)
[2025-06-06 21:35] LABS: MEAN PLATELET VOLUME 8.4 FL (7.4-10.4); RED CELL DISTRIBUTION WIDTH 15.2 % (11.5-14.5)
[2025-06-06 21:48] LABS: CREATININE 0.94 MG/DL (0.40-0.90); TOTAL CARBON DIOXIDE 27.4 MMOL/L (24-32); eGFR 59 ML/MIN
[2025-06-06 23:53] LABS: LEUKOCYTE ESTERASE ,URINE MODERATE (Neg); NITRITES, URINE NEGATIVE (Neg); OCCULT BLOOD,URINE MODERATE (Neg)
[2025-06-07 00:08] LABS: UA COLLECTION TYPE FOLEY CATH
[2025-06-07 00:14] LABS: MUCUS STRANDS FEW /LPF (Neg); SQUAMOUS EPITHELIAL CELL,UR FEW /LPF (FEW); YEAST MODERATE /HPF (NEGATIVE)
[2025-06-07] MEDS ORDERED: amox tr/potassium clavulanate 875/125mg TAB PO ONE (00:20)
--- NOTE | 2025-06-07 00:27 | Physician Documentation ---
History of Present Illness ~ Chief Complaint: Urinary Symptoms Stated Complaint: BLADDER INFECTION Time Seen by MD: 20:12 Primary Medical Doctor: michell TOUSSAINT HPI Patient is a 74-year-old female that presents to the emergency department for evaluation of urinary catheter complications. Patient reports that she has had multiple UTIs recently she was hospitalized for a UTI in the last month or 2 unsure of the date. Patient reports that prior to her last discharge she had a urinary catheter placed since that time she has been leaking urine around the urinary catheter. Patient denies fevers back pain abdominal pain or any other symptoms at this time. Medication Reconciliation Allergies: Coded Allergies: metoprolol (Verified Allergy, Unknown, 06/06/25) Scheduled Amiodarone Hcl (Cordarone), 200 MG PO BID, (Reported) Apixaban (Eliquis), 1 TAB PO Q12H, (Reported) Atorvastatin Calcium* (Lipitor*), 1 TABLET PO DAILY, (Reported) Cyanocobalamin (Vitamin B-12) (Cyanocobalamin Injection), 1 ML IM Q30D, (Reported) Empagliflozin (Jardiance), 25 TAB PO DAILY, (Reported) Gabapentin (Gabapentin), 1 TAB PO BID, (Reported) Levofloxacin (Levofloxacin), 750 MG PO DAILY Levothyroxine Sodium* (Synthroid*), 1 TAB PO DAILY, (Reported) Losartan Potassium (Losartan Potassium), 1 TAB PO DAILY, (Reported) Semaglutide (Ozempic), 1 SYR SQ Q7D, (Reported) Spironolactone (Spironolactone), 1 TAB PO DAILY, (Reported) Past Medical History Past Medical History: Atrial Fibrillation, Coronary Artery Disease, Congestive Heart Failure, Hypertension, Pneumonia, Hernia, Diabetes, Hypothyroidism Past Surgical History: abdominal surgery, gastric bypass, orthopedic surgeries Patient History: (CAD) Coronary arteriosclerosis FATHER, , Age: 60 years and older, Cause: Failure to thrive (DM Type 2) Diabetes mellitus type 2 MOTHER Alcohol Use: None Drug Use: none Lives In: Home Occupation: employed Review of Systems ROS As stated above in the HPI, otherwise all systems are reviewed and negative. Physical Exam Vital Signs: Temperature: 96.3, Source: Temporal, Heart Rate: 63, Respiratory Rate: 15, BP: 95/46, Pulse Oximetry: 97 Physical Exam VITALS: Reviewed and as above. GENERAL: Alert, no apparent distress. HEENT: Normocephalic, atraumatic, PERRL, EOMI, dry mucosa, no erythema RESPIRATORY: Lungs clear, normal breath sounds, no respiratory distress. CHEST: No accessory muscle use, no retractions CV: Regular rate, rhythm, no edema, no murmur, No: JVD GI: Soft, non-tender, bowels sounds present, no rebound, guarding, or rigidity, urinary catheter in place urine leaking around insertion site of the catheter. BACK: No CVA tenderness, or swelling MUSCULOSKELETAL No deformities, no edema SKIN: Warm and dry, no rash NEURO: Oriented x4, No motor or sensory deficit PSYCH: Normal mood and affect, no agitation Progress Results/Orders Results/Orders Vital Signs 06/06/25 19:31 Temp 96.3 Pulse 63 Resp 15 B/P (MAP) 95/46 Pulse Ox 97 Laboratory Tests Test 06/06/25 21:16 06/06/25 23:25 White Blood Count 9.5 Red Blood Count 4.62 Hemoglobin 14.5 Hematocrit 43.1 Mean Corpuscular Volume 93.3 Mean Corpuscular Hemoglobin 31.5 H Mean Corpuscular Hemoglobin Concent 33.7 Red Cell Distribution Width 15.2 H Platelet Count 197 Mean Platelet Volume 8.4 Neutrophils (%) (Auto) 71.9 Lymphocytes (%) (Auto) 19.9 L Monocytes (%) (Auto) 5.2 Eosinophils (%) (Auto) 2.4 Basophils (%) (Auto) 0.6 Neutrophils # (Auto) 6.9 Lymphocytes # (Auto) 1.9 Monocytes # (Auto) 0.5 Eosinophils # (Auto) 0.2 Basophils # (Auto) 0.1 CBC Comment Erythrocyte Sedimentation Rate 13 Sodium Level 130 L Potassium Level 4.9 Chloride Level 96 L Carbon Dioxide Level 27.4 Anion Gap 7 L Blood Urea Nitrogen 9 Creatinine 0.94 H Estimated GFR/1.73 m2 59 BUN/Creatinine Ratio 9.6 L Glucose Level 149 H Lactic Acid Level 1.3 Calcium Level 9.3 Total Bilirubin 1.4 H Aspartate Amino Transf (AST/SGOT) 33 Alanine Aminotransferase (ALT/SGPT) 40 Alkaline Phosphatase 75 C-Reactive Protein 0.27 Total Protein 7.0 Albumin 3.8 Globulin 3.2 Albumin/Globulin Ratio 1.2 Chemistry Comments Urine Specimen Description Martin cath Urine Color Yellow Urine Clarity Clear Urine pH 6.0 Urine Specific [place] <=1.005 Urine Protein Negative Urine Glucose (UA) >=1000 H Urine Ketones Negative Urine Occult Blood Moderate H Urine Nitrite Negative Urine Bilirubin Negative Urine Urobilinogen 0.2 Urine Leukocyte Esterase Moderate H Urine RBC 20-50 Urine WBC Tntc H Urine Squamous Epithelial Cells Few Urine Bacteria 1+ Urine Mucus Few Urine Yeast Moderate Urine Culture Indicated Indicated Volume Urine Centrifuged 10 ml Urine Comment Microbiology Date/Time Source Procedure Growth Status 06/06/25 21:19 Blood Arm Right Blood Culture - Preliminary NEGATIVE (LESS THAN 24 HOURS) Resulted Medical Decision Making Findings This patient presents with symptoms consistent with acute cystitis complicated by chronic urinary catheter. No systemic symptoms. Not septic. Well appearing. Low suspicion for acute pyelonephritis given lack of fever, CVAT, or systemic features. Low suspicion for kidney stone or infected stone. Patient denies any fevers chills dysuria back pain or any other concerning symptoms at this time. Urinary catheter replaced. Antibiotic prescribed. Patient will follow up with primary care provider. Patient will return to the emergency department with any worsening or recurrent symptoms or any additional concerning symptoms that we discussed here today i.e. fevers chills increased urinary symptoms abdominal pain blood in her urine or any other concerning symptoms. Urinary Diff Dx:Considerations: Include: AAA, , Aortic dissection, Appendicitis, Bowel obstruction, Cholelithiasis, Choleangitis, DJD, Ectopic , Hepatitis, HNP, Impaction, Intrauterine , Musculoskeletal pain, Ovarian torsion, Pancreatitis, PID, Post-Op complication, Pyelonephritis, Renal failure, Strain, Urinary Obstruction, Urolithiasis, Urinary retention, UTI, Vaginitis, Other Departure Disposition: 01 HOME / SELF CARE / HOMELESS Impression: Primary Impression: Acute urinary tract infection Additional Impression: Complication associated with urinary catheter Condition: Stable Discharge Instructions: Indwelling Urinary Catheter Care, Adult, Urinary Tract Infection, Adult Additional Instructions: This patient presents with symptoms consistent with acute cystitis complicated by chronic urinary catheter. No systemic symptoms. Not septic. Well appearing. Low suspicion for acute pyelonephritis given lack of fever, CVAT, or systemic features. Low suspicion for kidney stone or infected stone. Patient denies any fevers chills dysuria back pain or any other concerning symptoms at this time. Urinary catheter replaced. Antibiotic prescribed. Please follow up with primary care provider. Please return to the emergency department with any worsening or recurrent symptoms or any additional concerning symptoms that we discussed here today i.e. fevers chills increased urinary symptoms abdominal pain blood in her urine or any other concerning symptoms. Referrals: NO PRIMARY CARE PROVIDER (PCP) Prescriptions Amox Tr/Potassium Clavulanate (Augmentin 875-125 Tablet) 1 Each Tablet 1 TAB PO Q12H for 10 Days, #20 TAB Prov: ELSA RILEY 06/07/25 Education Educated: Patient Educated regarding: diagnosis, treatment, need for follow up Signature Scribe Signature: A Attestation: Scribed for Elsa Riley by SCOTT Mcgarry . 06/07/25 00:34 ELSA RILEY Jun 07, 2025 00:27
[2025-06-07] MEDS ORDERED: AMOX-117 PO (00:33)
[2025-06-07] MEDS: CefTRIAXone 1000mg IM Kit (w/lidocaine diluent) IM ONE (01:03)
[2025-06-07 02:29] VITALS: BP 114/68; PULSE 70; RESP 14; TEMP 98; O2SAT 99
== END 2025-06-07 02:32 | disposition home or self-care (01) ==
LOC: ER 19:18
DX: N39.0 Urinary tract infection, site not specified (principal); E03.9 Hypothyroidism, unspecified; E11.9 Type 2 diabetes mellitus without complications; I11.0 Hypertensive heart disease with heart failure; I50.9 Heart failure, unspecified; I25.10 Atherosclerotic heart disease of native coronary artery without angina pectoris; I48.91 Unspecified atrial fibrillation; Z88.8 Allergy status to other drugs, medicaments and biological substances; Z98.84 Bariatric surgery status
CPT/HCPCS: 36415; 51702; 80053; 81001; 83605; 85025; 85651; 86140; 87040; 87088; 96372; 99284; A4314; J0696; 81003

== ENCOUNTER 2025-07-30 09:57 | Outpatient (CLI) | payer MEDICARE, MEDICAID ==
[~2025-07-30] VITALS: Ht 162.6 cm; Wt 82.6 kg
[2025-07-30 10:42] LABS: ABG BASE EXCESS 0.3 mmol/L (-2.0-3.0); ABG HCO3 24.2 mmol/L (21.0-28.0); ABG OXYGEN SATURATION 93.2 % (94.0-98.0); ABG PCO2 (T) 37.2 mmHg (32.0-45.0); ABG PH (T) 7.432 (7.350-7.450); ABG PO2 (T) 65.2 mmHg (83.0-108.0); FCOHb 0.7 % (0.5-1.5); FHHb 6.7 % (0.0-5.0); FIO2 21.0 mmHg/%; FMetHb 0.3 % (0.0-1.5); FO2Hb 92.3 % (94.0-98.0); MODE RA; PATIENT TEMPERATURE 37.0; TOTAL HEMOGLOBIN 14.8 G/dl (12.0-16.0)
[2025-07-30] MEDS: albuterol 2.5 MG/3 ML nebule NEB ONE (10:55)
[2025-07-30 11:50] VITALS: PULSE 90; RESP 18; O2SAT 96
[2025-07-30 12:40] VITALS: PULSE 85; RESP 18
--- NOTE | 2025-07-31 16:06 | PROCEDURE NOTE - Respiratory ---
Procedure Note-Respiratory Providers to CC Copies To 1: JOSE FRANCISCO VILLASEÑOR MD; NICK TOUSSAINT MD Procedure Name: This is a complete pulmonary function study dated July 30, 2025. Hemoglobin measurement was done as part of the study. There was also a room air blood gas obtained from this patient on the same date. Spirometry measurements: Both the forced vital capacity and the FEV1 are normal. The FEV1 ratio is normal. The flow rates are in the lower range of normal. After inhaled bronchodilator was administered the flow volume curve actually shows some deterioration. Lung volume measurements: The total lung capacity is normal. The functional residual capacity is normal. The residual volume is borderline reduced. Lung diffusion measurement: The DLCO measurement is normal. It is noted that the KVO measurement is excellent. There is slight reduction in the alveolar volume measurement. The hemoglobin measurement is normal. Airway resistance measurement: The airway resistance is normal. Conclusion: Normal pulmonary function study. Compared to a study done five years earlier in February of 2020, the patient shows very slight worsening in the forced vital capacity and FEV1 measurements. There is no evidence for amiodarone pulmonary toxicity. If this patient continues to use amiodarone, please consider repeat pulmonary function testing within the next 12-24 months. A blood gas was drawn from this patient while the patient was breathing ambient air. The blood pH is normal. The pCO2 is normal. There is some reduction in the room air PO2 at 65 mmHg. DWAYNE MARI MD Jul 31, 2025 16:06
== END 2025-07-30 23:59 | disposition home or self-care (01) ==
LOC: RT 09:57
PROVIDERS: ATTEND Internal Medicine Cardiovascular Disease
DX: R06.02 Shortness of breath (principal); Z79.899 Other long term (current) drug therapy
CPT/HCPCS: 36600; 82803; 85018; 94060; 94727; 94729; 94760